=== PATIENT | female | born 1925 | race Caucasian/White ===

== ENCOUNTER 2016-06-24 17:42 | Emergency (ER) | payer MEDICARE, OTHER ==
[2016-06-24 18:37] LABS: BILIRUBIN NEGATIVE (NEGATIVE); BLOOD 1+ Ery/uL (NEGATIVE); CLARITY CLEAR (CLEAR); COLOR YELLOW (YELLOW); GLUCOSE (U) NORMAL (NORMAL); KETONE (U) 1+ (SMALL) mg/dL (NEGATIVE); LEUKOCYTES NEGATIVE Leu/uL (NEGATIVE); NITRITE NEGATIVE (NEGATIVE); PROTEIN TRACE (LOW) mg/dL (NEGATIVE); pH 7.5 (5.0-9.0)
[2016-06-24 18:38] LABS: BACTERIA TRACE
[2016-06-24 18:59] LABS: BASOPHIL 0.2 % (0-2); EOSINOPHIL 0.2 % (0-7); HCT 34.5 % (37.0-47.0); HGB 11.8 g/dl (12.5-16.0); LYMPHOCYTE 5.1 % (15-48); MCH 28.7 pg (25.0-31.0); MCHC 34.2 g/dL (32.0-36.0); MCV 83.9 fL (78.0-100.0); MONOCYTE 7.4 % (0-12); MPV 9.8 fL (6.0-9.5); NEUTROPHIL 87.1 % (41-80); PLT 209 K/uL (150-400); RBC 4.11 M/uL (4.20-5.40); RDW 13.5 % (11.5-14.0); WBC 12.6 K/uL (4.0-10.5)
[2016-06-24 19:12] LABS: CREATININE 0.7 mg/dL (0.5-1.0); POTASSIUM 3.5 mmol/L (3.5-5.1)
[2016-06-24 19:13] LABS: ALBUMIN 3.9 g/dL (3.4-4.8); BILIRUBIN - TOTAL 0.6 mg/dL (0.1-1.0); GLOBULIN (CALCULATION) 3.1 g/dL (2.2-4.2)
== END 2016-06-24 22:04 | disposition home or self-care (01) ==
LOC: FER 17:42
PROVIDERS: Emergency Medicine
DX: N30.90 Cystitis, unspecified without hematuria (principal); R06.02 Shortness of breath; R05 Cough; I25.2 Old myocardial infarction; I11.9 Hypertensive heart disease without heart failure; E03.9 Hypothyroidism, unspecified; F03.90 Unspecified dementia, unspecified severity, without behavioral disturbance, psychotic disturbance, mood disturbance, and anxiety; Z95.1 Presence of aortocoronary bypass graft
CPT/HCPCS: 36415; 71010; 80053; 81001; 83605; 85025; 87040; 87088

== ENCOUNTER 2016-12-01 19:47 | Emergency (ER) | payer MEDICARE, OTHER | END 2016-12-01 22:38 | disposition home or self-care (01) | LOC: FER 19:47 | DX: F03.90 Unspecified dementia, unspecified severity, without behavioral disturbance, psychotic disturbance, mood disturbance, and anxiety (principal); I10 Essential (primary) hypertension; F32.9 Major depressive disorder, single episode, unspecified; Z79.82 Long term (current) use of aspirin; Z79.899 Other long term (current) drug therapy; W06.XXXA Fall from bed, initial encounter | CPT/HCPCS: 70450; 71010; 72170; 93005 ==